=== PATIENT | female | born 1960 | race Hispanic/Latino ===

== ENCOUNTER 2018-03-03 20:07 | Emergency (ER) | payer OTHER ==
[2018-03-03 20:19] VITALS: BMI 40.7
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
[2018-03-03 21:04] LABS: HEMOGLOBIN 13.2 g/dL (12.0-16.0); MEAN CELL VOLUME 87.2 fl (80.0-105.0); MEAN CORPUSCULAR HEMOGLOBIN 28.7 pg (25.0-35.0); MEAN CORPUSCULAR HGB CONC 32.9 g/dl (31.0-37.0); MEAN PLATELET VOLUME 10.1 fl (7.0-11.0); RBC 4.6 10^6/uL (3.5-6.1); RED CELL DISTRIBUTION WIDTH 14.7 % (11.5-14.5); WHITE BLOOD COUNT 9.4 10^3/uL (4.5-11.0)
[2018-03-03 21:25] LABS: ALB/GLOB RATIO 1.3 (1.1-1.8); ALBUMIN 4.1 g/dL (3.0-4.8); ALT/SGPT 45 U/L (7-56); AST/SGOT 57 U/L (14-36); BLOOD UREA NITROGEN 12 mg/dL (7-21); GFR NON-AFRICAN AMERICAN > 60
[2018-03-04 06:44] VITALS: BP 123/62; PULSE 82; RESP 18; O2SAT 97
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
--- NOTE | 2018-03-04 14:39 | CARD ---
APPROVED REPORT Date of service: 03/03/2018 EKG Measurement Heart [id number] IN [id number] <Conclusion> Normal sinus rhythm Left axis deviation Nonspecific T wave abnormality Prolonged QT Abnormal ECG
== END 2018-03-04 06:44 | disposition home or self-care (01) ==
LOC: ED 20:07
DX: F10.129 Alcohol abuse with intoxication, unspecified (principal); H70.91 Unspecified mastoiditis, right ear; I10 Essential (primary) hypertension; I25.10 Atherosclerotic heart disease of native coronary artery without angina pectoris; Z87.891 Personal history of nicotine dependence